=== PATIENT | male | born 1995 | race Caucasian/White ===

== ENCOUNTER 2019-12-16 13:42 | Outpatient (CLI) | payer OTHER ==
--- NOTE | 2019-12-16 15:55 | MRI Report ---
Reason: PAIN IN RT KNEE Procedure Date: 12/16/2019 Accession Number: [id number] / [id number] Procedure: MRI - Knee RT W/O CPT Code: Final Report FULL RESULT: EXAM: RIGHT KNEE MRI WITHOUT CONTRAST EXAM DATE: 12/16/2019 02:47 PM. CLINICAL HISTORY: PAIN IN RT KNEE. COMPARISON: None. TECHNIQUE: Multiplanar, multisequence T1-weighted and fluid-sensitive sequences of the knee without contrast. Other: None. FINDINGS: Ligaments: The anterior cruciate, posterior cruciate, medial collateral, and lateral collateral ligaments are intact. Patellofemoral compartment: Very minimal superficial partial thickness central retropatellar chondromalacia. Femoral trochlear cartilage is preserved. No patellofemoral osteoarthritis. Patella mary is present, with the Insall ratio 1.47. The patella is also positioned slightly laterally within the femoral trochlea. Mild edema is present in the lateral aspect of Hoffa's fat pad immediately inferior to the lateral pole of the patella suggesting fat pad impingement related to patellar tendon-lateral femoral condyle friction syndrome. The distal quadriceps and patellar tendons are normal. The medial and lateral patellofemoral retinacula are normal. Medial compartment: The medial meniscus is intact. Medial compartment cartilage is preserved. No medial compartment osteoarthritis. 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 Overlying cartilage is intact. Lateral compartment: The lateral meniscus is intact. Lateral compartment cartilage is normal. No lateral compartment osteoarthritis. Soft tissues: There is a very small knee effusion. No popliteal cyst. IMPRESSION: 1. The combination of patella mary and mild edema in the lateral aspect of Hoffa's fat pad immediately inferior to the lateral pole of the patella suggests fat pad impingement related to patellar tendon-lateral femoral condyle friction syndrome. Minimal partial thickness central retropatellar chondromalacia is also present. The patellofemoral compartment is otherwise normal. 2. 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 The medial compartment is otherwise normal. 3. Normal lateral compartment. 4. Intact ligaments. RADIA
== END 2019-12-16 13:43 | disposition home or self-care (01) ==
LOC: DI 13:42
PROVIDERS: ATTEND Orthopaedic Surgery
DX: M22.8X9 Other disorders of patella, unspecified knee (principal); R60.0 Localized edema; M94.261 Chondromalacia, right knee

== ENCOUNTER 2021-05-04 07:06 | Outpatient (CLI) | payer OTHER ==
--- NOTE | 2021-05-04 10:57 | MRI Report ---
PROCEDURE: Shoulder RT W/O INDICATIONS: RIGHT SHOULDER LIGAMENTOUS TECHNIQUE: Noncontrast oblique coronal T2 fast spin echo with fat saturation, oblique sagittal T1 spin echo and T2 fast spin echo with fat saturation, axial T1 spin echo and T2 fast spin echo with fat saturation t hrough the shoulder. COMPARISON: None. FINDINGS: Rotator cuff: Supraspinatus appears intact. Infraspinatus tendinopathy is present. There is mild interstitial teari ng seen at the footprint. The teres minor tendon appears intact. Subscapularis tendon appears intact. No atrophy of the rotator cuff muscles seen although minimal fatty infiltration of the infraspinatus . Bones and bursae: No bone marrow contusions or fractures. Mild acromioclavicular joint degeneration. The acromion demonstrates conventional anatomy, without an os acromiale. No subacromial/subdeltoid bursal fluid is present. Capsule and soft tissues: Labrum: Superior labrum appears grossly intact. The posterior labrum is within normal limits. There i s ill-defined hypertrophic appearance and amorphous ill-defined signal changes seen in the region of the anteroinferior labrum, versus of the joint capsule and/or inferior glenohumeral ligament anterior band. The IJ gels not well seen secondary to signal dropout on the coronal pulse sequence in this ar ea. There is mild adjacent degenerative changes seen in the glenoid. No definite associated chondral loss. Biceps: Long head biceps tendon appears intact. Rotator interval: Normal signal intensity. Coracohumeral ligament: Intact. IMPRESSION: Mild infraspinatus tendinopathy with low-grade interstitial tearing at the footprint. Ill-defined signal changes and hypertrophic appearance in the region of the anteroinferior labrum. Ex act etiology is unclear although this could reflect chronic anteroinferior segment labral tear with s carring and fibrosis, although differential includes chronic sprain of the anterior band of the infer ior glenohumeral ligament (and/or joint capsule). Reviewed by: Cristi Jiménez MD on 05/04/2021 10:56 AM PDT Approved by: Cristi Jiménez MD on 05/04/2021 10:56 AM PDT Station ID: [id number]
== END 2021-05-04 07:07 | disposition home or self-care (01) ==
LOC: DI 07:06
PROVIDERS: ATTEND Student in an Organized Health Care Education/Training Program
DX: M75.101 Unspecified rotator cuff tear or rupture of right shoulder, not specified as traumatic (principal)